=== PATIENT | female | born 1970 | race Caucasian/White ===

== ENCOUNTER 2017-12-07 06:58 | Day surgery (SDC) | payer MEDICAID ==
[2017-12-07] MEDS: SOD CHLORIDE 0.9% 1,000 ML IV (10:20)
[2017-12-07] MEDS: CEFAZOLIN 1 GM/50 ML (PMX) 50 ML IVPB ×2 (10:30→10:49)
[2017-12-07] MEDS: FENTAnyl 50 MCG/ML VIAL (10:30)
[2017-12-07] MEDS: MIDAZOLAM 1 MG/ML 2 ML INJ (10:30)
[2017-12-07] MEDS: LIDOCAINE 1%/EPI 30 ML INJ (10:41)
[2017-12-07] MEDS: HEPARIN 1000 UNITS/ML 10 ML INJ (10:41)
[2017-12-07] MEDS: POLYMYXIN/BACITRACIN 1L IRRIG IRR (10:49)
[2017-12-07] MEDS ORDERED: HYDROCODONE/APAP (5/325) TAB PO (11:30)
== END 2017-12-07 13:40 | disposition home or self-care (01) ==
LOC: SDS 06:58
DX: C50.911 Malignant neoplasm of unspecified site of right female breast (principal)
CPT/HCPCS: 36561; 76942; 93306

== ENCOUNTER 2017-12-31 16:37 | Emergency (ER) | payer MEDICAID ==
[2017-12-31] MEDS: SOD CHLORIDE 0.9% 1,000 ML IV (17:52)
[2017-12-31 17:54] LABS: WHITE BLOOD COUNT 3.8 10^3/ul (4.8-10.8)
[2017-12-31 17:54] LABS: HEMATOCRIT 36.1 % (37.0-47.0); HEMOGLOBIN 11.3 g/dl (12.0-16.0); MEAN CORPUSCULAR HEMOGLOBIN 29.2 pg (29.0-33.0); MEAN CORPUSCULAR HGB CONC 31.3 g/dl (32.0-37.0); MEAN CORPUSCULAR VOLUME 93.3 fl (82.0-101.0); MEAN PLATELET VOLUME 11.8 fl (7.4-10.4); PLATELET COUNT 158 10^3/UL (140-415); POSITIVE DIFF @See below; RED BLOOD COUNT 3.87 10^6/ul (4.20-5.40); RED CELL DISTRIBUTION WIDTH 12.4 % (11.5-14.5)
[2017-12-31 17:55] LABS: ADD MAN DIFF? YES
[2017-12-31 17:56] LABS: ADD UMIC NO; UR ASCORBIC ACID NEGATIVE (NEGATIVE); UR BILIRUBIN (Dip) NEGATIVE (NEGATIVE); UR BLOOD (Dip) NEGATIVE (NEGATIVE); UR CLARITY CLEAR (CLEAR); UR COLOR COLORLESS (YELLOW); UR GLUCOSE (Dip) NEGATIVE (NEGATIVE); UR KETONES (Dip) NEGATIVE (NEGATIVE); UR LEUKOCYTE ESTERASE (Dip) NEGATIVE Leu/ul (NEGATIVE); UR NITRITE (Dip) NEGATIVE (NEGATIVE); UR SPECIFIC GRAVITY (Dip) 1.004 (1.003-1.030); UR TOTAL PROTEIN (Dip) NEGATIVE (NEGATIVE); UR UROBILINOGEN (Dip) NEGATIVE (NEGATIVE)
[2017-12-31 18:10] LABS: ALANINE AMINOTRANSFERASE 441 IU/L (13-69); ALBUMIN 4.5 g/dl (3.3-4.9); ALBUMIN/GLOBULIN RATIO 1.21; ALKALINE PHOSPHATASE 138 IU/L (42-121); ANION GAP 8 (5-13); ASPARTATE AMINO TRANSFERASE 254 IU/L (15-46); BILIRUBIN,INDIRECT 0.3 mg/dl (0-1.1); BILIRUBIN,TOTAL 0.3 mg/dl (0.2-1.3); BLOOD UREA NITROGEN 12 mg/dl (7-20); CALCIUM 9.5 mg/dl (8.4-10.2); CARBON DIOXIDE 28 mmol/L (21-31); CHLORIDE 100 mmol/L (97-110); CREATININE 0.86 mg/dl (0.44-1.00); Estimated GFR > 60 mL/min (>60); GLUCOSE 119 mg/dl (70-220); LIPASE 79 U/L (23-300); POTASSIUM 4.3 mmol/L (3.5-5.1); SODIUM 136 mmol/L (135-144); TOTAL PROTEIN 8.2 g/dl (6.1-8.1)
[2017-12-31 18:43] LABS: BAND NEUTROPHILS #M 0.5 10^3/ul (0.0-0.6); BAND NEUTROPHILS % (M) 15 % (0-4); BASOPHILS % (M) 2 % (0-2); EOSINOPHILS % (M) 1 % (0-7); GIANT THROMBO% (M) 1 % (0-0); LYMPHOCYTES #M 1.5 10^3/ul (0.8-2.9); LYMPHOCYTES % (M) 40 % (15-51); MONOCYTE #M 0.1 10^3/ul (0.3-0.9); MONOCYTES % (M) 3 % (0-11); PLATELET ESTIMATE NORMAL; PLATELET MORPHOLOGY COMMENT @See below; REACTIVE LYMPHOCYTES #M 0.1 10^3/ul (0.0-0.0); REACTIVE LYMPHOCYTES% (M) 4 % (0-0); SEG NEUT #M 1.3 10^3/ul (1.6-7.5); SEGMENTED NEUTROPHILS (M) % 35 % (39-77)
== END 2017-12-31 19:30 | disposition home or self-care (01) ==
LOC: FTE 16:37
DX: K62.5 Hemorrhage of anus and rectum (principal); T45.1X5A Adverse effect of antineoplastic and immunosuppressive drugs, initial encounter; Z85.3 Personal history of malignant neoplasm of breast
CPT/HCPCS: 74176; 80053; 81003; 81025; 83690; 85025; 96360; 99285-25

== ENCOUNTER 2018-01-26 13:09 | Emergency (ER) | payer MEDICAID ==
[2018-01-26 13:44] LABS: WHITE BLOOD COUNT 6.7 10^3/ul (4.8-10.8)
[2018-01-26 13:44] LABS: HEMATOCRIT 34.9 % (37.0-47.0); HEMOGLOBIN 11.1 g/dl (12.0-16.0); MEAN CORPUSCULAR HEMOGLOBIN 29.6 pg (29.0-33.0); MEAN CORPUSCULAR HGB CONC 31.8 g/dl (32.0-37.0); MEAN CORPUSCULAR VOLUME 93.1 fl (82.0-101.0); MEAN PLATELET VOLUME 10.7 fl (7.4-10.4); PLATELET COUNT 182 10^3/UL (140-415); RED BLOOD COUNT 3.75 10^6/ul (4.20-5.40); RED CELL DISTRIBUTION WIDTH 13.7 % (11.5-14.5)
[2018-01-26 13:46] LABS: ADD MAN DIFF? YES; POSITIVE DIFF @See below
[2018-01-26] MEDS: SOD CHLORIDE 0.9% 1,000 ML IV (13:47)
[2018-01-26] MEDS: PANTOPRAZOLE 40 MG INJ IV (13:47)
[2018-01-26 14:00] LABS: ALANINE AMINOTRANSFERASE 119 IU/L (13-69); ALBUMIN 4.4 g/dl (3.3-4.9); ALBUMIN/GLOBULIN RATIO 1.15; ALKALINE PHOSPHATASE 126 IU/L (42-121); ANION GAP 11 (5-13); ASPARTATE AMINO TRANSFERASE 76 IU/L (15-46); BILIRUBIN,INDIRECT 0.7 mg/dl (0-1.1); BILIRUBIN,TOTAL 0.7 mg/dl (0.2-1.3); BLOOD UREA NITROGEN 13 mg/dl (7-20); CALCIUM 9.7 mg/dl (8.4-10.2); CARBON DIOXIDE 28 mmol/L (21-31); CHLORIDE 101 mmol/L (97-110); CREATININE 0.62 mg/dl (0.44-1.00); Estimated GFR > 60 mL/min (>60); GLUCOSE 121 mg/dl (70-220); POTASSIUM 4.2 mmol/L (3.5-5.1); SODIUM 140 mmol/L (135-144); TOTAL PROTEIN 8.2 g/dl (6.1-8.1)
[2018-01-26 14:03] LABS: INR 0.92; PROTIME 12.4 Sec (11.9-14.9)
[2018-01-26 14:04] LABS: PARTIAL THROMBOPLASTIN TIME 36.3 Sec (23.0-35.0)
[2018-01-26 14:12] LABS: TROPONIN-I < 0.012 ng/ml (0.000-0.120)
[2018-01-26 14:35] LABS: ANISOCYTOSIS 1+ (0-0); BAND NEUTROPHILS #M 0.2 10^3/ul (0.0-0.6); BAND NEUTROPHILS % (M) 3 % (0-4); LYMPHOCYTES #M 1.7 10^3/ul (0.8-2.9); LYMPHOCYTES % (M) 26 % (15-51); MONOCYTES % (M) 1 % (0-11); MYELOCYTES % (M) 1 % (0-0); OVALOCYTES 1+ (0-0); PLATELET ESTIMATE NORMAL; POIKILOCYTOSIS 1+ (0-0); POLYCHROMASIA 3+ (0-0); REACTIVE LYMPHOCYTES #M 0.2 10^3/ul (0.0-0.0); REACTIVE LYMPHOCYTES% (M) 4 % (0-0); SEG NEUT #M 4.4 10^3/ul (1.6-7.5); SEGMENTED NEUTROPHILS (M) % 65 % (39-77); SMUDGE%M 4 % (0-0)
== END 2018-01-26 15:26 | disposition home or self-care (01) ==
LOC: E/R 13:09
DX: K62.5 Hemorrhage of anus and rectum (principal); Z85.3 Personal history of malignant neoplasm of breast
CPT/HCPCS: 36415; 80053; 84484; 85025; 85610; 85730; 86850; 86900; 86901; 96374; 99284-25

== ENCOUNTER → 2018-02-23 | Outpatient (CLI) | payer MEDICAID | END | disposition home or self-care (01) | LOC: EKG 09:04 | DX: C50.919 Malignant neoplasm of unspecified site of unspecified female breast (principal) | CPT/HCPCS: 93306 ==

== ENCOUNTER → 2018-05-04 | Outpatient (CLI) | payer MEDICAID | END | disposition home or self-care (01) | LOC: EKG 10:08 | DX: C50.919 Malignant neoplasm of unspecified site of unspecified female breast (principal) | CPT/HCPCS: 93306 ==

== ENCOUNTER 2018-06-18 09:16 | Inpatient (IN) | payer MEDICAID ==
[~2018-06-18 09:16] MED LIST: EPHEDrine 25 MG/5 ML SYG; GLYCOPYRROLATE 0.4 MG INJ; PHENYLephrine (100 MCG/ML) 10ML SYG
[2018-06-18] MEDS: CEFAZOLIN 2 GM/50 ML (PMX) 50 ML IVPB (11:00)
[2018-06-18] MEDS: SOD CHLORIDE 0.9% 1,000 ML IV (11:00)
[2018-06-18] MEDS: ACETAMINOPHEN 500 MG TAB PO (12:24)
[2018-06-18] MEDS ORDERED: HYDROmorphONE 1 MG/5 ML IV SYRINGE IV ×3 (13:30)
[2018-06-18] MEDS ORDERED: ONDANSETRON 4 MG INJ IV (13:30)
[2018-06-18] MEDS ORDERED: MEPERIDINE 25 MG INJ IV (13:30)
[2018-06-18] MEDS ORDERED: DIPHENHYDRAMINE 50 MG INJ IV (13:30)
[2018-06-18] MEDS ORDERED: OXYCODONE/ACETAMINOPHEN (5/325) TAB PO ×2 (13:30)
[2018-06-18] MEDS ORDERED: FENTAnyl 50 MCG/ML VIAL IV ×2 (13:30)
[2018-06-18] MEDS ORDERED: morphine (1 MG/ML) 10ML SYRINGE IV ×2 (13:30)
[2018-06-18] MEDS ORDERED: ALBUTEROL 0.083% (NEB) 2.5 MG/3 ML AMP HHN (13:30)
[2018-06-18] MEDS ORDERED: LABETALOL HCL 20MG INJ IV (13:30)
[2018-06-18] MEDS ORDERED: FENTAnyl 50 MCG/ML VIAL (13:33)
[2018-06-18] MEDS ORDERED: MIDAZOLAM 1 MG/ML 2 ML INJ (13:33)
[2018-06-18] MEDS ORDERED: LIDOCAINE 2% (SDV) 5 ML INJ (13:47)
[2018-06-18] MEDS ORDERED: ONDANSETRON 4 MG INJ (13:47)
[2018-06-18] MEDS ORDERED: CEFAZOLIN 1 GM INJ (13:47)
[2018-06-18] MEDS ORDERED: FAMOTIDINE 20 MG INJ (13:47)
[2018-06-18] MEDS ORDERED: PROPOFOL 40 ML (13:47)
[2018-06-18] MEDS: ISOSULFAN BLUE 1% 5 ML INJ SC (14:19)
[2018-06-18] MEDS ORDERED: ACETAMINOPHEN 1000MG/100ML IV 100 ML IVPB (15:00)
[2018-06-18] MEDS: D5W-0.45 NACL + KCL 20 MEQ 1,000 ML IV (17:23)
[2018-06-18] MEDS: morphine 2 MG INJ IV (17:24)
[2018-06-18] MEDS: ONDANSETRON 4 MG INJ IV (18:36)
[2018-06-18] MEDS ORDERED: HYDROCODONE/APAP (5/325) TAB PO (19:00)
[2018-06-19] MEDS: morphine 2 MG INJ IV (00:09)
[2018-06-19] MEDS: D5W-0.45 NACL + KCL 20 MEQ 1,000 ML IV ×3 (00:10→15:00)
[2018-06-19] MEDS: ONDANSETRON 4 MG INJ IV (00:11)
[2018-06-19 05:05] LABS: ADD MAN DIFF? NO
[2018-06-19 05:14] LABS: BASOPHILS % 0.3 % (0.0-2.0); EOSINOPHILS % 0.6 % (0.0-7.0); HEMATOCRIT 30.1 % (37.0-47.0); HEMOGLOBIN 9.7 g/dl (12.0-16.0); LYMPHOCYTES % 32.9 % (15.0-51.0); MEAN CORPUSCULAR HGB CONC 32.2 g/dl (32.0-37.0); MEAN CORPUSCULAR VOLUME 93.2 fl (82.0-101.0); MEAN PLATELET VOLUME 11.3 fl (7.4-10.4); MONOCYTE # 0.5 10^3/ul (0.3-0.9); MONOCYTES % 7.9 % (0.0-11.0); NEUTROPHIL # 3.6 10^3/ul (1.6-7.5); NEUTROPHILS % 58.1 % (39.0-77.0); PLATELET COUNT 122 10^3/UL (140-415); RED BLOOD COUNT 3.23 10^6/ul (4.20-5.40); RED CELL DISTRIBUTION WIDTH 11.9 % (11.5-14.5)
[2018-06-19 05:14] LABS: WHITE BLOOD COUNT 6.2 10^3/ul (4.8-10.8)
[2018-06-19 05:34] LABS: ANION GAP 5 (5-13); BLOOD UREA NITROGEN 12 mg/dl (7-20); CALCIUM 9.7 mg/dl (8.4-10.2); CARBON DIOXIDE 26 mmol/L (21-31); CHLORIDE 111 mmol/L (97-110); CREATININE 0.68 mg/dl (0.44-1.00); Estimated GFR > 60 mL/min (>60); GLUCOSE 188 mg/dl (70-220); SODIUM 142 mmol/L (135-144)
[2018-06-19 05:40] LABS: POTASSIUM 4.7 mmol/L (3.5-5.1)
== END 2018-06-19 17:45 | disposition home or self-care (01) | DRG 580 ==
LOC: SDS 09:16 → REC 15:30 → MS1 16:30
PROC: 0HBT0ZZ Excision of Right Breast, Open Approach (ICD-10-PCS; principal; 2018-06-18 13:00)
PROC: 07B50ZZ Excision of Right Axillary Lymphatic, Open Approach (ICD-10-PCS; 2018-06-18 13:00)
DX: C50.911 Malignant neoplasm of unspecified site of right female breast (principal); C96.9 Malignant neoplasm of lymphoid, hematopoietic and related tissue, unspecified
CPT/HCPCS: 80048; 85025; 88307; 88331